=== PATIENT | female | born 1940 | race Hispanic/Latino ===

== ENCOUNTER 2017-01-30 11:42 | Day surgery (SDC) | payer MEDICARE, OTHER ==
[2017-01-24 08:45] VITALS: BMI 26.4
[2017-01-30] MEDS ORDERED: Propofol 10 mg/ml Inj (20 ML) ONE (14:45)
[2017-01-30] MEDS ORDERED: Sodium Chloride 0.9% 1,000 ML IV SCH (15:45)
[2017-01-30 16:36] VITALS: RESP 20; TEMP 98; O2SAT 95
[2017-01-30 16:49] VITALS: BP 136/75; PULSE 56
== END 2017-01-30 17:18 | disposition home or self-care (01) ==
LOC: ENDO 11:42
PROVIDERS: ATTEND Internal Medicine
DX: K20.8 Other esophagitis (principal); K44.9 Diaphragmatic hernia without obstruction or gangrene; K29.70 Gastritis, unspecified, without bleeding; D12.0 Benign neoplasm of cecum; D12.3 Benign neoplasm of transverse colon; K57.30 Diverticulosis of large intestine without perforation or abscess without bleeding; K64.8 Other hemorrhoids
CPT/HCPCS: 43239; 45380; 45381; 45385; 82948; J2704; J7040 ×2